=== PATIENT | female | born 1975 | race Caucasian/White ===

== ENCOUNTER 2017-03-07 09:06 | Emergency (ER) | payer MEDICAID, OTHER ==
[2017-03-07] MEDS: morphine 4 MG/ML VIAL IV ×2 (11:25→15:38)
[2017-03-07] MEDS: FAMOTIDINE 20 MG INJ IV (11:25)
[2017-03-07] MEDS: ONDANSETRON 4 MG INJ IV (11:25)
[2017-03-07] MEDS: SOD CHLORIDE 0.9% 1,000 ML IV (11:25)
[2017-03-07] MEDS: LIDOCAINE/MYLANTA 40 ML BTL PO (11:25)
[2017-03-07 11:40] LABS: ADD MAN DIFF? NO; ADD UMIC YES; UR ASCORBIC ACID NEGATIVE (NEGATIVE); UR BACTERIA FEW /HPF (NONE SEEN); UR BILIRUBIN (Dip) NEGATIVE (NEGATIVE); UR BLOOD (Dip) NEGATIVE (NEGATIVE); UR CLARITY SLIGHTLY CLOUDY (CLEAR); UR COLOR YELLOW (YELLOW); UR GLUCOSE (Dip) NEGATIVE (NEGATIVE); UR KETONES (Dip) NEGATIVE (NEGATIVE); UR LEUKOCYTE ESTERASE (Dip) NEGATIVE Leu/ul (NEGATIVE); UR MUCUS FEW /HPF (NONE SEEN); UR NITRITE (Dip) NEGATIVE (NEGATIVE); UR RBC 1 /HPF (0-5); UR SPECIFIC GRAVITY (Dip) 1.021 (1.003-1.030); UR SQUAMOUS EPITHELIAL CELL FEW /HPF (FEW); UR TOTAL PROTEIN (Dip) 2+ mg/dl (NEGATIVE); UR UROBILINOGEN (Dip) NEGATIVE (NEGATIVE); UR WBC 2 /HPF (0-5)
[2017-03-07 11:57] LABS: WHITE BLOOD COUNT 7.1 10^3/ul (4.8-10.8)
[2017-03-07 11:57] LABS: ABNORMAL IP MESSAGE 1; BASOPHILS % 0.3 % (0.0-2.0); EOSINOPHILS # 0.1 10^3/ul (0.0-0.5); HEMATOCRIT 33.9 % (37.0-47.0); HEMOGLOBIN 10.1 g/dl (12.0-16.0); LYMPHOCYTES # 1.9 10^3/ul (0.8-2.9); LYMPHOCYTES % 27.4 % (15.0-51.0); MEAN CORPUSCULAR HEMOGLOBIN 19.7 pg (29.0-33.0); MEAN CORPUSCULAR HGB CONC 29.8 g/dl (32.0-37.0); MEAN CORPUSCULAR VOLUME 66.2 fl (82.0-101.0); MONOCYTE # 0.4 10^3/ul (0.3-0.9); MONOCYTES % 4.9 % (0.0-11.0); NEUTROPHIL # 4.7 10^3/ul (1.6-7.5); NEUTROPHILS % 66.3 % (39.0-77.0); PLATELET COUNT 278 10^3/UL (140-415); RED BLOOD COUNT 5.12 10^6/ul (4.20-5.40); RED CELL DISTRIBUTION WIDTH 18.9 % (11.5-14.5)
[2017-03-07 12:04] LABS: POSITIVE DIFF @See below
[2017-03-07 12:29] LABS: INR 1.04; PROTIME 13.7 Sec (11.9-14.9); PT RATIO 1.1
[2017-03-07 13:57] LABS: ALANINE AMINOTRANSFERASE 29 IU/L (13-69); ALBUMIN 4.4 g/dl (3.3-4.9); ALBUMIN/GLOBULIN RATIO 1.29; ALKALINE PHOSPHATASE 80 IU/L (42-121); ANION GAP 17 (8-16); ASPARTATE AMINO TRANSFERASE 19 IU/L (15-46); BILIRUBIN,INDIRECT 0.3 mg/dl (0-1.1); BILIRUBIN,TOTAL 0.3 mg/dl (0.2-1.3); BLOOD UREA NITROGEN 13 mg/dl (7-20); CALCIUM 8.8 mg/dl (8.4-10.2); CARBON DIOXIDE 21 mmol/L (21-31); CHLORIDE 107 mmol/L (97-110); CREATININE 0.73 mg/dl (0.44-1.00); GLUCOSE 103 mg/dl (70-220); LIPASE 36 U/L (23-300); POTASSIUM 4.1 mmol/L (3.5-5.1); SODIUM 141 mmol/L (135-144); TOTAL PROTEIN 7.8 g/dl (6.1-8.1)
[2017-03-07 14:19] LABS: TROPONIN-I < 0.012 ng/ml (0.00-0.12)
== END 2017-03-07 17:09 | disposition home or self-care (01) ==
LOC: FTE 09:06
DX: K80.20 Calculus of gallbladder without cholecystitis without obstruction (principal); D64.9 Anemia, unspecified; R19.00 Intra-abdominal and pelvic swelling, mass and lump, unspecified site; R07.9 Chest pain, unspecified
CPT/HCPCS: 36415; 71045; 74176; 76705; 80053; 81001; 83690; 84484; 85025; 85610; 85730; 93005; 96374; 96375; 96376; 99285-25